=== PATIENT | male | born 1950 | race Caucasian/White ===

== ENCOUNTER 2019-07-31 14:04 | Inpatient (IN) ==
--- NOTE | 2019-07-31 14:24 | Emergency Department Note ---
Disposition Clinical Impression: Acute respiratory failure with hypoxia Congestive heart failure Qualifiers: Heart failure type: unspecified Heart failure chronicity: acute on chronic Qualified Code(s): I50.9 - Heart failure, unspecified Disposition: Admitted As Inpatient Condition: Fair Referrals: NONE,PCP [Primary Care Provider] - Forms: ED Satisfaction Letter Time of Disposition: 16:46 General Adult HPI - General Stated complaint: YAZ Time Seen by Provider: 07/31/19 14:14 Source: patient, family Mode of arrival: EMS Limitations: no limitations Nursing Notes Reviewed: Yes Vital Signs Reviewed: Yes - History of Present Illness HPI Narrative: Patient's 69-year-old male history of CHF, diabetes, currently on Eliquis with reports of prior DVT presenting emergency department from the [place] for difficulty in breathing. Report from EMS that the patient was seen at the [place] today for a suspected acute CHF exacerbation. He was given a total of 40 mg of IV Lasix as well as started on BiPAP. Patient uses oxygen at home he does not use CPAP. Patient was recently discharged for an admission elsewhere for the same complaint. Patient recently started on new medications including flecainide, carvedilol, spironolactone, isosorbide. Here in the emergency department he is complaining of shortness of breath he was switched to our BiPAP. Patient denies chest pain, abdominal pain, nausea, vomiting. - Related Data Home Medications Medication Instructions Recorded Confirmed Amlodipine Besylate 10 mg PO DAILY 07/31/19 07/31/19 Apixaban [Eliquis] 5 mg PO BID 07/31/19 07/31/19 Aspirin [Lo-Dose Aspirin EC] 81 mg PO DAILY 07/31/19 07/31/19 Atorvastatin Calcium [Lipitor] 80 mg PO DAILY 07/31/19 07/31/19 Carvedilol [Coreg] 25 mg PO BID 07/31/19 07/31/19 Cholecalciferol (D-3) [Vitamin D] 2,000 unit PO DAILY 07/31/19 07/31/19 Flecainide 100 mg PO Q12HR 07/31/19 07/31/19 Furosemide [Lasix] 20 mg PO BID 07/31/19 07/31/19 Gabapentin [Neurontin] 300 mg PO TID 07/31/19 07/31/19 Hydralazine HCl 100 mg PO TID 07/31/19 07/31/19 Insulin ASPART [Novolog Flexpen] 10 unit SQ 0700,1200 07/31/19 07/31/19 Insulin ASPART [Novolog Flexpen] 18 unit SQ 1700 07/31/19 07/31/19 Insulin Glargine,Hum.rec.anlog 47 unit SQ HS 07/31/19 07/31/19 [Lantus Solostar] Isosorbide MONOnitrate (24 HR) 60 mg PO DAILY 07/31/19 07/31/19 [Imdur] Loratadine [Claritin] 10 mg PO DAILY 07/31/19 07/31/19 Losartan Potassium [Cozaar] 100 mg PO DAILY 07/31/19 07/31/19 Pantoprazole Sodium [Protonix] 40 mg PO DAILY 07/31/19 07/31/19 Ranitidine HCl [Heartburn Relief] 150 mg PO DAILY 07/31/19 07/31/19 Sertraline [Zoloft] 25 mg PO DAILY 07/31/19 07/31/19 Spironolactone 25 mg PO DAILY 07/31/19 07/31/19 Tamsulosin HCl [Flomax] 0.4 mg PO DAILY 07/31/19 07/31/19 Allergies Allergy/AdvReac Type Severity Reaction Status Date / Time No Known Allergies Allergy Verified 07/31/19 14:20 All systems ED: reviewed and negative except as stated. Review of Systems: As Per HPI Constitutional: Denies: fever, chills Eyes: Denies: eye pain, eye discharge ENT ED: Denies: ear pain, throat pain Cardiovascular: Reports: dyspnea on exertion. Denies: chest pain, palpitations Respiratory: Reports: cough, dyspnea Gastrointestinal: Denies: abdominal pain, nausea Genitourinary: Denies: urgency, dysuria Musculoskeletal: Denies: back pain, neck pain Integumentary: Denies: rash, abrasion Neurological: Denies: headache, weakness Psychiatric: Denies: anxiety, depression Endocrine: Denies: fatigue, heat or cold intolerance Hematological/Lymphatic: Denies: easy bleeding, easy bruising Allergic/Immunologic: Denies: facial swelling, urticaria Past Medical History - Past Medical History Attestation: Yes The following information was validated with the patient. Source: patient Physical Exam - General Limitations: no limitations, language barrier General appearance: alert, in no apparent distress - Head Head exam: atraumatic, normocephalic - Eye Eye exam: Present: normal appearance, PERRL, EOMI. Absent: scleral icterus, co njunctival injection - ENT ENT exam: normal exam, normal oropharynx, mucous membranes moist - Neck Neck exam: Present: normal inspection, full ROM - Chest Chest inspection: Present: normal inspection, symmetric chest wall rise. Absent: tenderness - Respiratory Respiratory exam: Present: respiratory distress, other (Bilateral crackles released in the lower lung ferrara) - Cardiovascular Cardiovascular exam: Present: normal rhythm, bradycardia, normal heart sounds - Abdominal Exam Abdominal exam: Present: soft, Non-Tender. Absent: tenderness - Extremities Exam Extremities exam: Present: other (4+ pitting edema of the lower extremities right leg appears more swollen than left.) - Neurological Exam Neurological exam: Present: alert, oriented X3 - Psychiatric Psychiatric exam: Present: normal affect, normal mood - Skin Skin exam: Present: warm, dry Course Vital Signs Temperature 97.5 F L 07/31/19 14:06 Pulse Rate 53 07/31/19 14:06 Respiratory Rate 26 07/31/19 14:06 Blood Pressure 130/60 07/31/19 14:06 O2 Sat by Pulse Oximetry 93 07/31/19 14:06 Temperature 97.5 F L 07/31/19 14:06 Pulse Rate 51 07/31/19 15:20 Respiratory Rate 16 07/31/19 15:20 Blood Pressure 154/75 07/31/19 15:20 O2 Sat by Pulse Oximetry 94 07/31/19 15:20 Oxygen Delivery Oxygen Delivery Bipap Medical Decision Making - [facility] Narrative Medical decision making narrative: Patient is a 9-year-old male history of CHF, diabetes, Eliquis for history of DVT. Presenting the emergency department from the [place] for acute hypoxic respiratory failure. Patient was brought in on BiPAP. We continued BiPAP here in the emergency department we have drawn basic labs as well as perform a chest x-ray. Chest x-ray shows pulmonary edema. Patient's vital signs in the emergency department he had a normotensive blood pressure and was slightly bradycardic at a rate in the 50s. So nitrates were not given. 40 mg of IV Lasix was given prior to arrival at the [place]. Patient improved on BiPAP and is satting 96%. We will perform basic laboratory evaluation as well as an ultrasound of the right lower extremity due to the asymmetry. Repeat chest x-ray demonstrates pulmonary edema. Lower extremity ultrasound was negative for DVT. I spoke with the hospitalist Dr. Rush who is agreed to admit the patient. - Medical Records Medical records reviewed: Yes I reviewed the patient's medical records. - Lab Data Lab results reviewed: Yes I reviewed the patient's lab results. Result diagrams: 07/31/19 14:13 07/31/19 14:13 Lab Results 07/31/19 07/31/19 07/31/19 Range/Units 14:13 14:13 14:13 WBC 10.1 (4.3-11.1) K/mcL RBC 4.06 L (4.19-5.50) M/mcL Hgb 10.0 L (12.9-16.9) g/dL Hct 33.7 L (37.5-50.1) % MCV 83.0 (83.0-100.0) fL MCH 24.6 L (28.0-33.3) pg MCHC 29.7 L (31.6-35.5) g/dL RDW 15.6 H (11.5-14.5) % Plt Count 348 (140-400) K/mcL MPV 9.8 (9.4-12.4) fL Immature Gran % 0.6 (0-4) % Seg Neutrophils % 62.7 % Lymphocytes % 18.5 % Monocytes % 9.8 % Eosinophils % 7.8 % Basophils % 0.6 % Neutrophils # 6.3 (1.6-8.9) K/mcL Lymphocytes # 1.9 (0.6-4.6) K/mcL Monocytes # 1.0 (0.0-1.3) K/mcL Eosinophils # 0.8 H (0.0-0.6) K/mcL Basophils # 0.1 (0.0-0.2) K/mcL VBG pH (7.32-7.42) pH Units VBG pCO2 (41-51) mmHg VBG pO2 (25-50) mmHg VBG HCO3 (21-27) mEq/L Sodium 143 (136-145) mEq/L Potassium 4.3 (3.5-5.1) mEq/L Chloride 104 (98-107) mEq/L Carbon Dioxide 32 H (23-29) mEq/L BUN 38 H (8-23) mg/dL Creatinine 1.32 H (0.70-1.30) mg/dL Est GFR ( Amer) > 60 (> 60) Est GFR (Non-Af Amer) 54 L (> 60) BUN/Creatinine Ratio 29 H (6-26) Glucose 84 (70-105) mg/dL Calculated Osmolality 304 H (280-300) Calcium 9.4 (8.6-10.3) mg/dL Total Bilirubin 0.4 (0.3-1.0) mg/dL AST 14 (13-39) Units/L ALT 12 (7-52) Units/L Alkaline Phosphatase 91 (34-104) Units/L Troponin I < 0.03 (< 0.04) ng/mL B-Natriuretic Peptide 213 H (Less than 100) pg/mL Serum Total Protein 6.4 (6.4-8.9) g/dL Albumin 3.3 L (3.5-5.7) g/dL Globulin 3.1 (2.4-3.5) g/dL Albumin/Globulin Ratio 1.1 (1.1-2.2) 07/31/19 Range/Units 14:28 WBC (4.3-11.1) K/mcL RBC (4.19-5.50) M/mcL Hgb (12.9-16.9) g/dL Hct (37.5-50.1) % MCV (83.0-100.0) fL MCH (28.0-33.3) pg MCHC (31.6-35.5) g/dL RDW (11.5-14.5) % Plt Count (140-400) K/mcL MPV (9.4-12.4) fL Immature Gran % (0-4) % Seg Neutrophils % % Lymphocytes % % Monocytes % % Eosinophils % % Basophils % % Neutrophils # (1.6-8.9) K/mcL Lymphocytes # (0.6-4.6) K/mcL Monocytes # (0.0-1.3) K/mcL Eosinophils # (0.0-0.6) K/mcL Basophils # (0.0-0.2) K/mcL VBG pH 7.41 (7.32-7.42) pH Units VBG pCO2 53 H (41-51) mmHg VBG pO2 66 H (25-50) mmHg VBG HCO3 34 H (21-27) mEq/L Sodium (136-145) mEq/L Potassium (3.5-5.1) mEq/L Chloride (98-107) mEq/L Carbon Dioxide (23-29) mEq/L BUN (8-23) mg/dL Creatinine (0.70-1.30) mg/dL Est GFR ( Amer) (> 60) Est GFR (Non-Af Amer) (> 60) BUN/Creatinine Ratio (6-26) Glucose (70-105) mg/dL Calculated Osmolality (280-300) Calcium (8.6-10.3) mg/dL Total Bilirubin (0.3-1.0) mg/dL AST (13-39) Units/L ALT (7-52) Units/L Alkaline Phosphatase (34-104) Units/L Troponin I (< 0.04) ng/mL B-Natriuretic Peptide (Less than 100) pg/mL Serum Total Protein (6.4-8.9) g/dL Albumin (3.5-5.7) g/dL Globulin (2.4-3.5) g/dL Albumin/Globulin Ratio (1.1-2.2) - Radiology Data Radiology results reviewed: Yes I reviewed the patient's radiology results. Chest X-Ray 07/31/19 14:24 IMPRESSION: Findings suggest congestive heart failure D/ / Selvin Lopez MD / Selvin Lopez MD Interpreting Provider: Selvin Lopez MD - EKG Data EKG #1 EKG attestation: Yes I reviewed and interpreted this EKG. EKG results narrative: EKG performed at 1417 reviewed by myself and attending shows a sinus bradycardia rhythm a rate of 54, VA 236, QRS 106, QTC 462. There are no acute ST changes no acute T-wave changes no other signs of ischemia. There is low voltage. VA interval is prolonged. Previous EKG performed 01/16/2013 there was multiple PVCs. Attestation Statement - Attestation Attestation: Mandi Elias D.O., examined this patient and my medical decision-making was reviewed with the Resident Physician. I agree with the documented findings, disposition and treatment plan as described except to the extent set forth below.
[2019-07-31 14:31] LABS: VBG HCO3 34 mEq/L (21-27); VBG PCO2 53 mmHg (41-51); VBG PH 7.41 pH Units (7.32-7.42); VBG PO2 66 mmHg (25-50)
[2019-07-31 14:36] LABS: Basophils # 0.1 K/mcL (0.0-0.2); Basophils % 0.6 %; Eosinophils # 0.8 K/mcL (0.0-0.6); Eosinophils % 7.8 %; Hematocrit 33.7 % (37.5-50.1); Immature Granulocytes % 0.6 % (0-4); Lymphocytes # 1.9 K/mcL (0.6-4.6); Lymphocytes % 18.5 %; Mean Corpuscular HGB Conc 29.7 g/dL (31.6-35.5); Mean Corpuscular Hemoglobin 24.6 pg (28.0-33.3); Mean Platelet Volume 9.8 fL (9.4-12.4); Monocytes % 9.8 %; Neutrophils # 6.3 K/mcL (1.6-8.9); Platelet Count 348 K/mcL (140-400); Red Blood Count 4.06 M/mcL (4.19-5.50); Red Cell Distribution Width 15.6 % (11.5-14.5); Segmented Neutrophils % 62.7 %; White Blood Count 10.1 K/mcL (4.3-11.1)
[2019-07-31 14:54] LABS: Alanine Aminotransferase 12 Units/L (7-52); Albumin 3.3 g/dL (3.5-5.7); Albumin/Globulin Ratio 1.1 (1.1-2.2); Alkaline Phosphatase 91 Units/L (34-104); Aspartate Amino Transferase 14 Units/L (13-39); BUN/Creatinine Ratio 29 (6-26); Bilirubin,Total 0.4 mg/dL (0.3-1.0); Blood Urea Nitrogen 38 mg/dL (8-23); Calcium 9.4 mg/dL (8.6-10.3); Carbon Dioxide 32 mEq/L (23-29); Chloride 104 mEq/L (98-107); Globulin 3.1 g/dL (2.4-3.5); Glucose 84 mg/dL (70-105); Osmolality,Calculated 304 (280-300); Potassium 4.3 mEq/L (3.5-5.1); Sodium 143 mEq/L (136-145); Total Protein 6.4 g/dL (6.4-8.9); Troponin I < 0.03 ng/mL (< 0.04); eGFR For African Americans > 60 (> 60); eGFR For Non-African Americans 54 (> 60)
--- NOTE | 2019-07-31 15:05 | Emergency Department Note ---
Disposition Clinical Impression: Acute respiratory failure with hypoxia Congestive heart failure Qualifiers: Heart failure type: unspecified Heart failure chronicity: acute on chronic Qualified Code(s): I50.9 - Heart failure, unspecified Disposition: Admitted As Inpatient Condition: Fair Forms: ED Satisfaction Letter Time of Disposition: 16:51 General Adult HPI - General Chief complaint: ED Shortness of Breath/Dyspnea Stated complaint: YAZ Time Seen by Provider: 07/31/19 14:14 Source: EMS Limitations: no limitations, language barrier - History of Present Illness Pain Scale: 0 - Related Data Home Medications Medication Instructions Recorded Confirmed Amlodipine Besylate 10 mg PO DAILY 07/31/19 07/31/19 Apixaban [Eliquis] 5 mg PO BID 07/31/19 07/31/19 Aspirin [Lo-Dose Aspirin EC] 81 mg PO DAILY 07/31/19 07/31/19 Atorvastatin Calcium [Lipitor] 80 mg PO DAILY 07/31/19 07/31/19 Carvedilol [Coreg] 25 mg PO BID 07/31/19 07/31/19 Cholecalciferol (D-3) [Vitamin D] 2,000 unit PO DAILY 07/31/19 07/31/19 Flecainide 100 mg PO Q12HR 07/31/19 07/31/19 Furosemide [Lasix] 20 mg PO BID 07/31/19 07/31/19 Gabapentin [Neurontin] 300 mg PO TID 07/31/19 07/31/19 Hydralazine HCl 100 mg PO TID 07/31/19 07/31/19 Insulin ASPART [Novolog Flexpen] 10 unit SQ 0700,1200 07/31/19 07/31/19 Insulin ASPART [Novolog Flexpen] 18 unit SQ 1700 07/31/19 07/31/19 Insulin Glargine,Hum.rec.anlog 47 unit SQ HS 07/31/19 07/31/19 [Lantus Solostar] Isosorbide MONOnitrate (24 HR) 60 mg PO DAILY 07/31/19 07/31/19 [Imdur] Loratadine [Claritin] 10 mg PO DAILY 07/31/19 07/31/19 Losartan Potassium [Cozaar] 100 mg PO DAILY 07/31/19 07/31/19 Pantoprazole Sodium [Protonix] 40 mg PO DAILY 07/31/19 07/31/19 Ranitidine HCl [Heartburn Relief] 150 mg PO DAILY 07/31/19 07/31/19 Sertraline [Zoloft] 25 mg PO DAILY 07/31/19 07/31/19 Spironolactone 25 mg PO DAILY 07/31/19 07/31/19 Tamsulosin HCl [Flomax] 0.4 mg PO DAILY 07/31/19 07/31/19 Allergies Allergy/AdvReac Type Severity Reaction Status Date / Time No Known Allergies Allergy Verified 07/31/19 14:20 Constitutional: Denies: fever, chills Eyes: Denies: eye pain, eye discharge ENT ED: Denies: ear pain, throat pain Cardiovascular: Reports: dyspnea on exertion. Denies: chest pain, palpitations Respiratory: Reports: cough, dyspnea Gastrointestinal: Denies: abdominal pain, nausea Genitourinary: Denies: urgency, dysuria Musculoskeletal: Denies: back pain, neck pain Integumentary: Denies: rash, abrasion Neurological: Denies: headache, weakness Psychiatric: Denies: anxiety, depression Endocrine: Denies: fatigue, heat or cold intolerance Hematological/Lymphatic: Denies: easy bleeding, easy bruising Allergic/Immunologic: Denies: facial swelling, urticaria Past Medical History - Past Medical History Medical history: Reports: CHF, coronary artery disease, diabetes, GERD, hyperlipidemia, hypertension Psychiatric history: Reports: no psych history - Social History Smoking Status: Never smoker Alcohol use: Reports: none Drug use: Reports: none Physical Exam - General Limitations: no limitations, language barrier General appearance: alert, in no apparent distress Course Vital Signs Temperature 97.5 F L 07/31/19 14:06 Pulse Rate 53 07/31/19 14:06 Respiratory Rate 26 07/31/19 14:06 Blood Pressure 130/60 07/31/19 14:06 O2 Sat by Pulse Oximetry 93 07/31/19 14:06 Temperature 97.5 F L 07/31/19 14:06 Pulse Rate 51 07/31/19 15:20 Respiratory Rate 16 07/31/19 15:20 Blood Pressure 154/75 07/31/19 15:20 O2 Sat by Pulse Oximetry 94 07/31/19 15:20 Oxygen Delivery Oxygen Delivery Bipap Medical Decision Making - Lab Data Result diagrams: 07/31/19 14:13 07/31/19 14:13 Lab Results 07/31/19 07/31/19 07/31/19 Range/Units 14:13 14:13 14:13 WBC 10.1 (4.3-11.1) K/mcL RBC 4.06 L (4.19-5.50) M/mcL Hgb 10.0 L (12.9-16.9) g/dL Hct 33.7 L (37.5-50.1) % MCV 83.0 (83.0-100.0) fL MCH 24.6 L (28.0-33.3) pg MCHC 29.7 L (31.6-35.5) g/dL RDW 15.6 H (11.5-14.5) % Plt Count 348 (140-400) K/mcL MPV 9.8 (9.4-12.4) fL Immature Gran % 0.6 (0-4) % Seg Neutrophils % 62.7 % Lymphocytes % 18.5 % Monocytes % 9.8 % Eosinophils % 7.8 % Basophils % 0.6 % Neutrophils # 6.3 (1.6-8.9) K/mcL Lymphocytes # 1.9 (0.6-4.6) K/mcL Monocytes # 1.0 (0.0-1.3) K/mcL Eosinophils # 0.8 H (0.0-0.6) K/mcL Basophils # 0.1 (0.0-0.2) K/mcL VBG pH (7.32-7.42) pH Units VBG pCO2 (41-51) mmHg VBG pO2 (25-50) mmHg VBG HCO3 (21-27) mEq/L Sodium 143 (136-145) mEq/L Potassium 4.3 (3.5-5.1) mEq/L Chloride 104 (98-107) mEq/L Carbon Dioxide 32 H (23-29) mEq/L BUN 38 H (8-23) mg/dL Creatinine 1.32 H (0.70-1.30) mg/dL Est GFR ( Amer) > 60 (> 60) Est GFR (Non-Af Amer) 54 L (> 60) BUN/Creatinine Ratio 29 H (6-26) Glucose 84 (70-105) mg/dL Calculated Osmolality 304 H (280-300) Calcium 9.4 (8.6-10.3) mg/dL Total Bilirubin 0.4 (0.3-1.0) mg/dL AST 14 (13-39) Units/L ALT 12 (7-52) Units/L Alkaline Phosphatase 91 (34-104) Units/L Troponin I < 0.03 (< 0.04) ng/mL B-Natriuretic Peptide 213 H (Less than 100) pg/mL Serum Total Protein 6.4 (6.4-8.9) g/dL Albumin 3.3 L (3.5-5.7) g/dL Globulin 3.1 (2.4-3.5) g/dL Albumin/Globulin Ratio 1.1 (1.1-2.2) 07/31/19 Range/Units 14:28 WBC (4.3-11.1) K/mcL RBC (4.19-5.50) M/mcL Hgb (12.9-16.9) g/dL Hct (37.5-50.1) % MCV (83.0-100.0) fL MCH (28.0-33.3) pg MCHC (31.6-35.5) g/dL RDW (11.5-14.5) % Plt Count (140-400) K/mcL MPV (9.4-12.4) fL Immature Gran % (0-4) % Seg Neutrophils % % Lymphocytes % % Monocytes % % Eosinophils % % Basophils % % Neutrophils # (1.6-8.9) K/mcL Lymphocytes # (0.6-4.6) K/mcL Monocytes # (0.0-1.3) K/mcL Eosinophils # (0.0-0.6) K/mcL Basophils # (0.0-0.2) K/mcL VBG pH 7.41 (7.32-7.42) pH Units VBG pCO2 53 H (41-51) mmHg VBG pO2 66 H (25-50) mmHg VBG HCO3 34 H (21-27) mEq/L Sodium (136-145) mEq/L Potassium (3.5-5.1) mEq/L Chloride (98-107) mEq/L Carbon Dioxide (23-29) mEq/L BUN (8-23) mg/dL Creatinine (0.70-1.30) mg/dL Est GFR ( Amer) (> 60) Est GFR (Non-Af Amer) (> 60) BUN/Creatinine Ratio (6-26) Glucose (70-105) mg/dL Calculated Osmolality (280-300) Calcium (8.6-10.3) mg/dL Total Bilirubin (0.3-1.0) mg/dL AST (13-39) Units/L ALT (7-52) Units/L Alkaline Phosphatase (34-104) Units/L Troponin I (< 0.04) ng/mL B-Natriuretic Peptide (Less than 100) pg/mL Serum Total Protein (6.4-8.9) g/dL Albumin (3.5-5.7) g/dL Globulin (2.4-3.5) g/dL Albumin/Globulin Ratio (1.1-2.2) Attestation Statement - Attestation Attestation: Mandi Elias D.O., examined this patient and my medical decision-making was reviewed with the Resident Physician. I agree with the documented findings, disposition and treatment plan as described except to the extent set forth below. 69-year-old male history of congestive heart failure, diabetes, currently on Eliquis with reports of prior DVT who presents with a chief complaint of shortness of breath. The patient was seen at the [place] urgent care earlier. He was given 40 mg of Lasix and placed on CPAP. He states that he wears oxygen at home. He does not wear CPAP. His been short of breath for a few days. He has had lower extremity swelling. He reports a recent admission a week ago. Denies any chest pain. No other complaints. General: Alert, in moderate respiratory distress HENT: Normocephalic, Atraumatic Neck: No JVD Cardiovascular: Bradycardic, regular rhythm. No appreciable murmurs Respiratory: Moderate respiratory distress. Diminished breath sounds bilaterally. Abdominal: Soft, non tender. No peritoneal findings Extremities: Significant lower extremity pitting edema, right greater than left Neuro: Alert, Mentating appropriately, No focal deficits Skin: Warm, Dry Plan: Patient will remain on BiPAP. Chest x-ray reviewed at bedside showing pulmonary edema. He has already received Lasix. Plan to repeat labs, admission for congestive heart failure. ED Procedure Note: EKG interpretation - I agree with the resident physician's documentation and interpretation of the patient's EKG. Sinus bradycardia with rate of 54 bpm. Normal axis. First-degree AV block with a UT interval of 236. Other intervals normal.. Normal R-wave progression. No gross ST elevations or depressions. No acute ischemic findings. Imaging labs reviewed. Chest x-ray shows volume overload. He does have an elevated BNP. Patient received Lasix prior to arrival. Patient is admitted to the hospitalist service.
[2019-07-31] MEDS ORDERED: Mag Hydrox/Al Hydrox/Simeth 30 ML UDC PO PRN (17:14)
[2019-07-31] MEDS ORDERED: Ondansetron 4 MG/2 ML VIAL IVP PRN (17:14)
[2019-07-31] MEDS ORDERED: Dextrose Gel 15 GM/37.5 ML TUBE PO PRN ×2 (17:19)
[2019-07-31] MEDS ORDERED: *HR* Dextrose 50 % in Water (Syg) 50 ML SYRINGE IVP PRN (17:19)
[2019-07-31] MEDS ORDERED: D5% in Water 1,000 ML IVC PRN (17:19)
--- NOTE | 2019-07-31 17:25 | Internal Med History&Physical ---
Date of Encounter: 07/31/19 Time of Encounter: 17:25 Internal Medicine - H&P: HPI Chief complaint: Dyspnea Admitted From: Home Plans for Post Hospital Care: Home History of present illness: Mr. Aldana is a 69 year old male with history of CVA status post right-sided weakness, DVT, left carotid artery endarterectomy, recurrent heart failure, insulin-dependent diabetes mellitus, ??? A. dale (on flecainide) was sent from [place] emergency Department due to dyspnea and decompensated heart failure. Patient was sleepy on BiPAP during my encounter and most of the history was taken from his brother. Patient had 3 hospitalization in the last month for acute decompensated heart failure and he also follows with outpatient dynamicist. As per the brother, patient is on Lasix 20 mg twice a day and he does not skip any doses. He follows 1500 mL fluid restriction and low sodium diet faithfully at home. Patient was able to answer simple questions and he denied chest pain, palpitation, fever, chills, night sweats, excessive cough or sputum production, tobacco abuse. In the ER, patient was afebrile, hemodynamically stable. He was on BiPAP in mild distress. Chest x-ray with finding of congestive heart failure and bibasilar atelectasis. Blood work was significant for elevated BNP , troponin was negative 1. EKG sinus bradycardia with first-degree heart block. Past Med Surg Social Fam HX - Past Medical History Medical history: CHF, coronary artery disease, diabetes, GERD, hyperlipidemia, hypertension Psychiatric history: no psych history - Past Surgical History Additional surgical history: Left carotid endarterectomy - Social History Smoking Status: Never smoker Alcohol use: none Drug use: none Activity Level: Independent ambulation Recent Out of Country Travel Within the Last 8 Weeks: No Exposure or Possible Exposure to Illness During Travel: No - Additional Family History Additional family history: Reviewed and noncontributory Internal Medicine - H&P: Meds Amlodipine Besylate 10 mg PO DAILY 07/31/19 [History] Apixaban [Eliquis] 5 mg PO BID 07/31/19 [History] Aspirin [Lo-Dose Aspirin EC] 81 mg PO DAILY 07/31/19 [History] Atorvastatin Calcium [Lipitor] 80 mg PO DAILY 07/31/19 [History] Carvedilol [Coreg] 25 mg PO BID 07/31/19 [History] Cholecalciferol (D-3) [Vitamin D] 2,000 unit PO DAILY 07/31/19 [History] Flecainide 100 mg PO Q12HR 07/31/19 [History] Furosemide [Lasix] 20 mg PO BID 07/31/19 [History] Gabapentin [Neurontin] 300 mg PO TID 07/31/19 [History] Hydralazine HCl 100 mg PO TID 07/31/19 [History] Insulin ASPART [Novolog Flexpen] 10 unit SQ 0700,1200 07/31/19 [History] Insulin ASPART [Novolog Flexpen] 18 unit SQ 1700 07/31/19 [History] Insulin Glargine,Hum.rec.anlog [Lantus Solostar] 47 unit SQ HS 07/31/19 [History] Isosorbide MONOnitrate (24 HR) [Imdur] 60 mg PO DAILY 07/31/19 [History] Loratadine [Claritin] 10 mg PO DAILY 07/31/19 [History] Losartan Potassium [Cozaar] 100 mg PO DAILY 07/31/19 [History] Pantoprazole Sodium [Protonix] 40 mg PO DAILY 07/31/19 [History] Ranitidine HCl [Heartburn Relief] 150 mg PO DAILY 07/31/19 [History] Sertraline [Zoloft] 25 mg PO DAILY 07/31/19 [History] Spironolactone 25 mg PO DAILY 07/31/19 [History] Tamsulosin HCl [Flomax] 0.4 mg PO DAILY 07/31/19 [History] Allergy/AdvReac Type Severity Reaction Status Date / Time No Known Allergies Allergy Verified 07/31/19 14:20 All Systems PM: A 10-system review of systems was performed and is negative for pertinent findings except as documented above in the HPI. - Constitutional Vitals: Temp Pulse Resp BP Pulse Ox 97.5 F L 55 16 151/72 97 07/31/19 14:06 07/31/19 17:18 07/31/19 17:18 07/31/19 17:18 07/31/19 17:18 Exam: General: Patient is somnolent, arousable, mild distress, on BiPAP Head: Atraumatic, normal inspection, normocephalic. Eye: EOMI, PERRLA, no scleral icterus noted. ENT: Mucous membranes moist. Neck: Normal inspection, Respiratory: Bilateral bibasilar crackles Cardiovascular: Regular rate and regular rhythm, distant heart sounds. GI: Soft, nondistended, normal bowel sounds. Extremities: +3 lateral lower extremity edema up to the knee, right lower extremity larger than the left. Neurological: Alert, oriented 3, no focal deficits. Psychiatric: normal affect, normal mood. Skin: Dry, intact, warm. Normal color. No rashes. Internal Med - H&P Results - Labs CBC & Chem 7: 07/31/19 14:13 07/31/19 14:13 Labs: Short CBC 07/31/19 Range/Units 14:13 WBC 10.1 (4.3-11.1) K/mcL Hgb 10.0 L (12.9-16.9) g/dL Hct 33.7 L (37.5-50.1) % Plt Count 348 (140-400) K/mcL Neutrophils # 6.3 (1.6-8.9) K/mcL BMP 07/31/19 14:13 Sodium 143 Potassium 4.3 Chloride 104 Carbon Dioxide 32 H BUN 38 H Creatinine 1.32 H Glucose 84 Calcium 9.4 Cardiac Enzymes 07/31/19 Range/Units 14:13 Troponin I < 0.03 (< 0.04) ng/mL Liver Function 07/31/19 Range/Units 14:13 Total Bilirubin 0.4 (0.3-1.0) mg/dL AST 14 (13-39) Units/L ALT 12 (7-52) Units/L Alkaline Phosphatase 91 (34-104) Units/L Albumin 3.3 L (3.5-5.7) g/dL - ABG Interpretation ABG results: 07/31/19 14:28 VBG pH 7.41 VBG pCO2 53 H VBG pO2 66 H VBG HCO3 34 H - EKG Data -: EKG Interpreted by Myself EKG shows normal: sinus rhythm Rate: bradycardia - EKG Data Prior EKG available for review: no - Impressions ITS Impressions Chest X-Ray 07/31/19 14:24 IMPRESSION: Findings suggest congestive heart failure D/ / Selvin Lopez MD / Selvin Lopez MD Interpreting Provider: Selvin Lopez MD - Diagnostic Studies Chest x-ray Status: image reviewed by me (Congestive heart failure) - Assessment and Plan (1) Congestive heart failure Current Visit: Yes Status: Acute Assessment and plan: - She had 3 admissions in the past month for heart failure. BNP is elevated for his weight. Chest x-ray with findings of congestive heart. - On Lasix 20 mg twice a day at home, patient is compliant with his medication, diet and fluid restriction. - We will get CT scan of the chest to rule out pneumonia as a reason of his recurrent heart failure, likely he needs higher doses than 20 mg twice daily of Lasix. - We will continue with Lasix 40 mg IV twice a day. Monitor input and output, daily weight. Echo tomorrow. - Troponin 1 is negative, we will check another troponin. cardiology consult for recurrent heart failure, He would be a candidate for ENTERESTO to decrease the risk of readmission. Qualifiers: Heart failure type: unspecified Heart failure chronicity: unspecified Qualified Code(s): I50.9 - Heart failure, unspecified (2) Acute respiratory failure with hypoxia Current Visit: Yes Status: Acute Assessment and plan: 2/2 above. Now on Bipap. (3) DVT (deep venous thrombosis) Current Visit: Yes Status: Acute Assessment and plan: Continue with ELiquis Qualifiers: DVT location: lower extremity Affected thrombotic vein of extremity: unspecified vein of extremity Chronicity: unspecified Laterality: unspecified laterality Qualified Code(s): I82.409 - Acute embolism and thrombosis of unspecified deep veins of unspecified lower extremity (4) IDDM (insulin dependent diabetes mellitus) Current Visit: Yes Status: Chronic Assessment and plan: - On lantus 47 units qhs and lispro 08/16/18. Will start with levemir 30u and MSSI. Accu checks ACHS and ADA diet. (5) A-fib Current Visit: Yes Status: Suspected Assessment and plan: -Suspected, patient's medications list include Flecainide. Will confirm once he is more awake. Qualifiers: Atrial fibrillation type: unspecified Qualified Code(s): I48.91 - Unspecified atrial fibrillation (6) CVA (cerebral vascular accident) Current Visit: Yes Status: Chronic Assessment and plan: - Continue Aspirin and lipitor. Qualifiers: CVA mechanism: unspecified Qualified Code(s): I63.9 - Cerebral infarction, unspecified (7) HTN (hypertension) Current Visit: Yes Status: Acute Assessment and plan: -Continue home medications Qualifiers: Hypertension type: essential hypertension Qualified Code(s): I10 - Essential (primary) hypertension - Summary of Assessment and Plan Summary of Assessment and Plan: DVT ppx: continue Eliquis - Time Spent With Patient Total time spent is greater than 50% in coordination of care (as documented) at patient's floor/unit and/or counseling patient:
[2019-07-31] MEDS: hydrALAZINE 25 MG TABLET PO SCH (20:34)
[2019-07-31] MEDS: Gabapentin 300 MG CAPSULE PO SCH (20:34)
[2019-07-31] MEDS ORDERED: Apixaban 5 MG TABLET PO SCH (21:00)
[2019-07-31] MEDS ORDERED: Furosemide 40 MG/4 ML VIAL IVP ONE (21:00)
[2019-07-31] MEDS: Insulin DETEMIR 100 UNIT/ML X5UNITS SQ SCH (21:40)
[2019-08-01 04:24] LABS: Basophils # 0.1 K/mcL (0.0-0.2); Basophils % 0.9 %; Eosinophils # 0.6 K/mcL (0.0-0.6); Eosinophils % 7.8 %; Hematocrit 32.8 % (37.5-50.1); Hemoglobin 9.9 g/dL (12.9-16.9); Immature Granulocytes % 0.5 % (0-4); Lymphocytes # 1.3 K/mcL (0.6-4.6); Lymphocytes % 17.1 %; Mean Corpuscular HGB Conc 30.2 g/dL (31.6-35.5); Mean Corpuscular Hemoglobin 24.1 pg (28.0-33.3); Mean Platelet Volume 9.6 fL (9.4-12.4); Monocytes # 0.8 K/mcL (0.0-1.3); Neutrophils # 4.9 K/mcL (1.6-8.9); Platelet Count 331 K/mcL (140-400); Red Cell Distribution Width 15.6 % (11.5-14.5); Segmented Neutrophils % 63.7 %; White Blood Count 7.7 K/mcL (4.3-11.1)
[2019-08-01 04:45] LABS: BUN/Creatinine Ratio 29 (6-26); Blood Urea Nitrogen 35 mg/dL (8-23); Carbon Dioxide 35 mEq/L (23-29); Chloride 103 mEq/L (98-107); Glucose 70 mg/dL (70-105); Osmolality,Calculated 304 (280-300); Potassium 4.1 mEq/L (3.5-5.1); Sodium 144 mEq/L (136-145); Troponin I < 0.03 ng/mL (< 0.04); eGFR For African Americans > 60 (> 60); eGFR For Non-African Americans 60 (> 60)
--- NOTE | 2019-08-01 07:48 | Internal Med Progress Note ---
Hospitalist Progress Note - Encounter Date of Encounter: 08/01/19 Time of Encounter: 09:00 - Subjective Interval History: No acute events overnight - Exam Vitals: Temp Pulse Resp BP Pulse Ox 98.5 F 65 20 164/67 94 08/01/19 07:36 08/01/19 07:36 08/01/19 07:36 08/01/19 07:36 08/01/19 07:36 Exam: General: Patient is somnolent, arousable, mild distress, on BiPAP Head: Atraumatic, normal inspection, normocephalic. Eye: EOMI, PERRLA, no scleral icterus noted. ENT: Mucous membranes moist. Neck: Normal inspection, Respiratory: Bilateral bibasilar crackles Cardiovascular: Regular rate and regular rhythm, distant heart sounds. GI: Soft, nondistended, normal bowel sounds. Extremities: +3 lateral lower extremity edema up to the knee, right lower extremity larger than the left. Neurological: Alert, oriented 3, no focal deficits. Psychiatric: normal affect, normal mood. Skin: Dry, intact, warm. Normal color. No rashes. - Assessment and Plan (1) Acute respiratory failure with hypoxia Current Visit: Yes Status: Acute Assessment and Plan: ACute hypoxic respiratory failure 2/2 to acute CHF and pneumonia. Echo pending to deteermine EF Continue on Bipap, lasix and antibiotics. (2) Congestive heart failure Current Visit: Yes Status: Acute Assessment and Plan: He has had 3 admissions in the past month for heart failure. BNP is elevated for his weight. Chest x-ray with findings of congestive heart failure. Continue BID lasix. Strict ins and outs. Obtain 2D echo, thoracentesis for bilateral pleural effusions (3) DVT (deep venous thrombosis) Current Visit: Yes Status: Acute Assessment and Plan: Continue with ELiquis (4) IDDM (insulin dependent diabetes mellitus) Current Visit: Yes Status: Chronic Assessment and Plan: - On lantus 47 units qhs and lispro 08/16/18. Will start with levemir 30u and MSSI. Accu checks ACHS and ADA diet. (5) A-fib Current Visit: Yes Status: Suspected Assessment and Plan: Continue flecainide and eliquis (6) Pneumonia Current Visit: Yes Status: Acute Assessment and Plan: Continue antibiotics with ceftriaxone and doxycycline Obtain cultures (7) CVA (cerebral vascular accident) Current Visit: Yes Status: Chronic Assessment and Plan: - Continue Aspirin and lipitor. (8) HTN (hypertension) Current Visit: Yes Status: Acute Assessment and Plan: -Continue home medications - Time Spent with Patient Total time spent is greater than 50% in coordination of care (as documented) at patient's floor/unit and/or counseling patient: Internal Medicine: Result - Labs CBC & Chem 7: 08/01/19 04:04 08/01/19 04:04 Labs: Short CBC 07/31/19 08/01/19 Range/Units 14:13 04:04 WBC 10.1 7.7 (4.3-11.1) K/mcL Hgb 10.0 L 9.9 L (12.9-16.9) g/dL Hct 33.7 L 32.8 L (37.5-50.1) % Plt Count 348 331 (140-400) K/mcL Neutrophils # 6.3 4.9 (1.6-8.9) K/mcL BMP 07/31/19 08/01/19 14:13 04:04 Sodium 143 144 Potassium 4.3 4.1 Chloride 104 103 Carbon Dioxide 32 H 35 H BUN 38 H 35 H Creatinine 1.32 H 1.21 Glucose 84 70 Calcium 9.4 9.0 Cardiac Enzymes 07/31/19 08/01/19 Range/Units 14:13 04:04 Troponin I < 0.03 < 0.03 (< 0.04) ng/mL Liver Function 07/31/19 Range/Units 14:13 Total Bilirubin 0.4 (0.3-1.0) mg/dL AST 14 (13-39) Units/L ALT 12 (7-52) Units/L Alkaline Phosphatase 91 (34-104) Units/L Albumin 3.3 L (3.5-5.7) g/dL - Impressions Impressions Chest X-Ray 07/31/19 14:24 IMPRESSION: Findings suggest congestive heart failure D/ / Selvin Lopez MD / Selvin Lopez MD Interpreting Provider: Selvin Lopez MD Chest CT 07/31/19 18:06 IMPRESSION: [id number] bilateral pleural effusions with dependent consolidation involving the majority of the lower lobes, likely at least a large component of passive atelectasis. Pneumonia is not excluded. The aerated lungs show ground-glass opacity and interlobular septal thickening compatible with edema. There are few focal areas of bilateral nodular increased pulmonary opacity raising the possibility of superimposed pneumonia. D/ / Sonia Dash Cha, MD / Sonia Dash Cha, MD Interpreting Provider: Sonia Dash Cha, MD Consult Discharge Plan - Plan Referrals: NONE,PCP [Primary Care Provider] - (2) Congestive heart failure Qualifiers: Heart failure type: unspecified Heart failure chronicity: unspecified Qualified Code(s): I50.9 - Heart failure, unspecified (3) DVT (deep venous thrombosis) Qualifiers: DVT location: lower extremity Affected thrombotic vein of extremity: unspecified vein of extremity Chronicity: unspecified Laterality: unspecified laterality Qualified Code(s): I82.409 - Acute embolism and thrombosis of unspecified deep veins of unspecified lower extremity (5) A-fib Qualifiers: Atrial fibrillation type: unspecified Qualified Code(s): I48.91 - Unspecified atrial fibrillation (7) CVA (cerebral vascular accident) Qualifiers: CVA mechanism: unspecified Qualified Code(s): I63.9 - Cerebral infarction, unspecified (8) HTN (hypertension) Qualifiers: Hypertension type: essential hypertension Qualified Code(s): I10 - Essential (primary) hypertension
[2019-08-01 08:45] LABS: INR 1.6; Prothrombin Time 17.7 Seconds (9.4-12.1)
[2019-08-01] MEDS: Insulin LISPRO 300 UNITS/3 ML VIAL SQ SCH ×3 (08:48→16:28)
[2019-08-01] MEDS: Cholecalciferol (D-3) 1,000 UNIT (25MCG) TABLET PO SCH (08:49)
[2019-08-01] MEDS: Loratadine 10 MG TABLET PO SCH (08:49)
[2019-08-01] MEDS: Aspirin Enteric Coated 81 MG Tablet PO SCH (08:49)
[2019-08-01] MEDS: Isosorbide MONOnitrate (24 HR) 60 MG TAB.ER.24H PO SCH (08:49)
[2019-08-01] MEDS: hydrALAZINE 25 MG TABLET PO SCH ×3 (08:49→20:56)
[2019-08-01] MEDS: Gabapentin 300 MG CAPSULE PO SCH ×3 (08:49→20:56)
[2019-08-01] MEDS: Furosemide 40 MG/4 ML VIAL IVP SCH ×2 (08:50→16:22)
[2019-08-01] MEDS: cefTRIAXone 1,000 MG in Water for inj. (sterile) 10 ML IVP SCH (08:50)
--- NOTE | 2019-08-01 11:48 | Cardiology Consult Note ---
<Anthony Henning - Last Filed: 08/01/19 12:29> Date of Encounter: 08/01/19 Time of Encounter: 11:46 Assessment and Plan (1) Congestive heart failure Current Visit: Yes Status: Acute Acute on chronic CHF. Obtain records from OSH. No reports here. Obtain TTE. Agree with IV lasix and consideration of thoracentesis as you are doing. Strict I&O and daily weights. Net -3680ML. Will need higher dose lasix at discharge. CHF education reviewed. We will follow with you. Qualifiers: Heart failure type: unspecified Heart failure chronicity: unspecified Qualified Code(s): I50.9 - Heart failure, unspecified (2) A-fib Current Visit: Yes Status: Suspected Newly diagnosed afib. Currently NSR. On flecainide. Anticoagulated on eliquis. Check EKG. Qualifiers: Atrial fibrillation type: unspecified Qualified Code(s): I48.91 - Unspeci fied atrial fibrillation Discussion w patient/family: The assessment and plan as outlined above was discussed with the patient and/or family members who expressed understanding and agreement. All questions were answered. Thank you for involving us in the care of your patient. Please call with any questions. History of Present Illness Consult date: 08/01/19 Requesting physician: Jeremy Moon Consult reason: CHF Chief complaint: SOB, recurrent CHF History of present illness: Mr. Aldana is a 69 year old male with past medical history significant for newly diagnosed CHF and atrial fibrillation, prior CVA, HTN, HLD who presents from [place] with recurrent CHF exacerbation. This is his 4th hospital admission for CHF since June 12. He was initially seen at [facility] when he was diagnosed with atrial fibrillation and CHF. He was re-hospitalized at [facility] once for CHF and Once at the [facility] for CHF. After recent visit at [facility] he was still SOB and could not lay flat at night. He was sleeping in his recliner chair. C/o BLE edema and abdominal bloating. Reports compliance with medications and low sodium diet. Family and patient are poor historians. They cannot recall testing that was completed at OSH. We will order records. Past Med Surg Social Fam HX - Past Medical History Medical history: CHF, CVA, DVT, diabetes, GERD, hyperlipidemia, hypertension Psychiatric history: no psych history - Past Surgical History Additional surgical history: Left carotid endarterectomy - Social History Smoking Status: Never smoker Smokeless Tobacco Status: No Alcohol use: none Drug use: none Medications and Allergies Amlodipine Besylate 10 mg PO DAILY 07/31/19 [History] Apixaban [Eliquis] 5 mg PO BID 07/31/19 [History] Aspirin [Lo-Dose Aspirin EC] 81 mg PO DAILY 07/31/19 [History] Atorvastatin Calcium [Lipitor] 80 mg PO DAILY 07/31/19 [History] Carvedilol [Coreg] 25 mg PO BID 07/31/19 [History] Cholecalciferol (D-3) [Vitamin D] 2,000 unit PO DAILY 07/31/19 [History] Flecainide 100 mg PO Q12HR 07/31/19 [History] Furosemide [Lasix] 20 mg PO BID 07/31/19 [History] Gabapentin [Neurontin] 300 mg PO TID 07/31/19 [History] Hydralazine HCl 100 mg PO TID 07/31/19 [History] Insulin ASPART [Novolog Flexpen] 10 unit SQ 0700,1200 07/31/19 [History] Insulin ASPART [Novolog Flexpen] 18 unit SQ 1700 07/31/19 [History] Insulin Glargine,Hum.rec.anlog [Lantus Solostar] 47 unit SQ HS 07/31/19 [History] Isosorbide MONOnitrate (24 HR) [Imdur] 60 mg PO DAILY 07/31/19 [History] Loratadine [Claritin] 10 mg PO DAILY 07/31/19 [History] Losartan Potassium [Cozaar] 100 mg PO DAILY 07/31/19 [History] Pantoprazole Sodium [Protonix] 40 mg PO DAILY 07/31/19 [History] Ranitidine HCl [Heartburn Relief] 150 mg PO DAILY 07/31/19 [History] Sertraline [Zoloft] 25 mg PO DAILY 07/31/19 [History] Spironolactone 25 mg PO DAILY 07/31/19 [History] Tamsulosin HCl [Flomax] 0.4 mg PO DAILY 07/31/19 [History] Allergy/AdvReac Type Severity Reaction Status Date / Time No Known Allergies Allergy Verified 07/31/19 14:20 All Systems Review: The remainder of the systems were reviewed and are negative Physical Examination General: Conversant, No Apparent Distress HEENT: Atraumatic, Normocephaly, Mucus Membranes Moist Neck: No JVD, Normal carotid pulses Cardiac: Reg Rate and Rhythm, Normal S1 and S2, No Murmur Lungs: Other (on bipap, respirations diminished) Neuro: Alert and responsive, No focal deficits noted Abdomen: Soft, Non-Tender Skin: No rashes noted on visualized skin Musculoskeletal: No Chest Wall Tenderness Extremities: No Clubbing, No Cyanosis, Normal Pulses, Other (2+ BLE pitting edema.) Results 08/01/19 04:04 08/01/19 04:04 Lab Results 07/31/19 07/31/19 07/31/19 14:13 14:13 14:13 WBC 10.1 Hgb 10.0 L Hct 33.7 L Plt Count 348 INR Sodium 143 Potassium 4.3 Chloride 104 Carbon Dioxide 32 H BUN 38 H Creatinine 1.32 H Glucose 84 Calcium 9.4 Total Bilirubin 0.4 AST 14 ALT 12 Alkaline Phosphatase 91 Troponin I < 0.03 B-Natriuretic Peptide 213 H 08/01/19 08/01/19 08/01/19 04:04 04:04 04:04 WBC 7.7 Hgb 9.9 L Hct 32.8 L Plt Count 331 INR Sodium 144 Potassium 4.1 Chloride 103 Carbon Dioxide 35 H BUN 35 H Creatinine 1.21 Glucose 70 Calcium 9.0 Total Bilirubin AST ALT Alkaline Phosphatase Troponin I < 0.03 B-Natriuretic Peptide 218 H 08/01/19 08:17 WBC Hgb Hct Plt Count INR 1.6 Sodium Potassium Chloride Carbon Dioxide BUN Creatinine Glucose Calcium Total Bilirubin AST ALT Alkaline Phosphatase Troponin I B-Natriuretic Peptide - Imaging and Cardiology Echo: report reviewed - EKG Interpretation EKG results cardiology: personally reviewed Consult Discharge Plan - Plan Referrals: NONE,PCP [Primary Care Provider] - < A - Last Filed: 08/01/19 19:02> Date of Encounter: 08/01/19 - Attending Attestation I have personally performed a face to face evaluation on this patient. I have reviewed and agree with the documented findings and care plan as documented by the BANK OPERATIONS OFFICER. History and Exam by me shows: Patient with history of PAF, admitted for diastolic CHF exacerbation. Agree with diuresis. Obtain echo and continue Flecainide if no evidence of structural heart disease. Thanks for the consult, please call with questions. Jakub Gibson MD [facility] Assessment and Plan Discussion w patient/family: The assessment and plan as outlined above was discussed with the patient and/or family members who expressed understanding and agreement. All questions were answered. Thank you for involving us in the care of your patient. Please call with any questions. History of Present Illness History of present illness: Mr. Aldana is a 69 year old male All Systems Review: The remainder of the systems were reviewed and are negative Physical Examination Vital Signs, Last 4 Hours Temp Pulse Resp BP Pulse Ox 08/01/19 16:18 98.7 F 67 18 156/88 92 Results 08/01/19 04:04 08/01/19 04:04 Lab Results 08/01/19 08/01/19 08/01/19 04:04 04:04 04:04 WBC 7.7 Hgb 9.9 L Hct 32.8 L Plt Count 331 INR Sodium 144 Potassium 4.1 Chloride 103 Carbon Dioxide 35 H BUN 35 H Creatinine 1.21 Glucose 70 Calcium 9.0 Troponin I < 0.03 B-Natriuretic Peptide 218 H 08/01/19 08:17 WBC Hgb Hct Plt Count INR 1.6 Sodium Potassium Chloride Carbon Dioxide BUN Creatinine Glucose Calcium Troponin I B-Natriuretic Peptide
--- NOTE | 2019-08-01 13:31 | IR Procedure Note ---
Date of procedure: 08/01/19 Consent Obtained: Verbal consent Timeout: Correct patient and procedure verified, Correct site verified, Time out performed, Skin prep completed Local anesthetic: Lidocaine 1% Was there an registered nurse first assistant present: Yes Can Operator: Julio César Szymanski Estimated blood loss (cc): 0 Complications: None; Tolerated procedure well Indications: Bilateral pleureal effusions Procedure Performed: Bilateral thoracentesis Post Procedure Treatment Plan: monitor on floor Specimen: samples sent
[2019-08-01] MEDS ORDERED: Perflutren Lipid Microsphere 1.3 ML in 0.9 % Sodium Chloride 8.7 ML IVP ONE (15:29)
[2019-08-01] MEDS: Doxycycline 100 MG in 0.9 % Sodium Chloride Mini Bag 100 ML IVPB SCH ×2 (16:19→16:32)
[2019-08-01 16:43] LABS: Glucose,Pleural Fluid 66 mg/dL (No Ref Range); LDH,Pleural Fluid 82 Units/L (No Ref Range); RBC,Pleural Fluid 0.022 M/mcL; Total Protein,Pleural Fluid < 3.0 g/dL
[2019-08-01 17:50] LABS: Appearance of Pleural Fl Hazy (Clear)
[2019-08-01] MEDS ORDERED: Doxycycline 100 MG in 0.9 % Sodium Chloride Mini Bag 100 ML IVPB SCH (18:00)
[2019-08-01 18:05] LABS: Basophils,Pleural Fluid 0 %; Monocytes,Pleural Fluid 0 %
[2019-08-01] MEDS: Insulin DETEMIR 100 UNIT/ML X5UNITS SQ SCH (20:57)
[2019-08-01] MEDS: Apixaban 5 MG TABLET PO SCH (20:57)
--- NOTE | 2019-08-01 21:44 | Electrocardiograph Report ---
[address] [place], [place] [address] Test Date: 2019-07-31 Pat Name: Ky Aldana Department: [id number] Room: 2A23 Gender: M [employer] Supervisor: : [id number] Requested By: [id number] Order Number: [id number] Reading MD: Janene Hanna Measurements Intervals [place] Rate: 54 P: 29 MI: 236 QRS: 46 QRSD: 106 T: 8 QT: 487 QTc: 462 Interpretive Statements Sinus rhythm Prolonged MI interval Low voltage, extremity leads Probable anteroseptal infarct, old Electronically Signed On 08-01-2019 21:42:24 EDT by Janene Hanna
[2019-08-02 04:03] LABS: Basophils # 0.1 K/mcL (0.0-0.2); Basophils % 0.6 %; Eosinophils # 0.7 K/mcL (0.0-0.6); Eosinophils % 7.9 %; Hematocrit 31.7 % (37.5-50.1); Hemoglobin 9.6 g/dL (12.9-16.9); Immature Granulocytes % 0.5 % (0-4); Lymphocytes # 1.5 K/mcL (0.6-4.6); Lymphocytes % 17.8 %; Mean Corpuscular HGB Conc 30.3 g/dL (31.6-35.5); Mean Corpuscular Hemoglobin 24.4 pg (28.0-33.3); Mean Corpuscular Volume 80.5 fL (83.0-100.0); Mean Platelet Volume 9.7 fL (9.4-12.4); Monocytes % 11.6 %; Neutrophils # 5.2 K/mcL (1.6-8.9); Platelet Count 319 K/mcL (140-400); Red Blood Count 3.94 M/mcL (4.19-5.50); Red Cell Distribution Width 15.5 % (11.5-14.5); Segmented Neutrophils % 61.6 %; White Blood Count 8.5 K/mcL (4.3-11.1)
[2019-08-02 04:22] LABS: BUN/Creatinine Ratio 23 (6-26); Blood Urea Nitrogen 28 mg/dL (8-23); Calcium 8.7 mg/dL (8.6-10.3); Carbon Dioxide 36 mEq/L (23-29); Chloride 101 mEq/L (98-107); Glucose 160 mg/dL (70-105); Magnesium 2.2 mg/dL (1.6-2.6); Osmolality,Calculated 305 (280-300); Phosphorous 3.1 mg/dL (2.7-4.5); Sodium 143 mEq/L (136-145); eGFR For African Americans > 60 (> 60); eGFR For Non-African Americans > 60 (> 60)
[2019-08-02] MEDS: Doxycycline 100 MG in 0.9 % Sodium Chloride Mini Bag 100 ML IVPB SCH (05:29)
--- NOTE | 2019-08-02 07:31 | Internal Med Progress Note ---
Hospitalist Progress Note - Encounter Date of Encounter: 08/02/19 Time of Encounter: 08:00 - Subjective Interval History: No acute events overnight. Had bilateral thoracentesis performed - Exam Vitals: Temp Pulse Resp BP Pulse Ox 98 F 60 17 142/56 94 08/02/19 03:49 08/02/19 03:49 08/02/19 03:49 08/02/19 03:49 08/02/19 03:49 Exam: General: Patient is somnolent, arousable, mild distress, on BiPAP Head: Atraumatic, normal inspection, normocephalic. Eye: EOMI, PERRLA, no scleral icterus noted. ENT: Mucous membranes moist. Neck: Normal inspection, Respiratory: Bilateral bibasilar crackles Cardiovascular: Regular rate and regular rhythm, distant heart sounds. GI: Soft, nondistended, normal bowel sounds. Extremities: +3 lateral lower extremity edema up to the knee, right lower extremity larger than the left. Neurological: Alert, oriented 3, no focal deficits. Psychiatric: normal affect, normal mood. Skin: Dry, intact, warm. Normal color. No rashes. - Assessment and Plan (1) Acute respiratory failure with hypoxia Current Visit: Yes Status: Acute Assessment and Plan: ACute hypoxic respiratory failure 2/2 to acute worsening of chronic diastolic CHF and pneumonia. Echo pending to determine EF Continue on Bipap, lasix and antibiotics. s/p bilateral thoracentesis yesterday with significant fluid removal Improved this am. Wean down oxygen as tolerated (2) Congestive heart failure Current Visit: Yes Status: Acute Assessment and Plan: He has had 3 admissions in the past month for heart failure. BNP is elevated for his weight. Has acute worsening of chronic diastolic CHF Continue BID lasix. Strict ins and outs. Echo showed preserved EF with diastolic dysfunction. Received bilateral thoracentesis yesterday (3) DVT (deep venous thrombosis) Current Visit: Yes Status: Acute Assessment and Plan: Continue with Eliquis (4) IDDM (insulin dependent diabetes mellitus) Current Visit: Yes Status: Chronic Assessment and Plan: - On lantus 47 units qhs and lispro 08/16/18. Will start with levemir 30u and MSSI. Accu checks ACHS and ADA diet. (5) A-fib Current Visit: Yes Status: Suspected Assessment and Plan: Continue flecainide and eliquis (6) Pneumonia Current Visit: Yes Status: Acute Assessment and Plan: Continue antibiotics with ceftriaxone and doxycycline Obtain cultures (7) CVA (cerebral vascular accident) Current Visit: Yes Status: Chronic Assessment and Plan: - Continue Aspirin and lipitor. (8) HTN (hypertension) Current Visit: Yes Status: Acute Assessment and Plan: -Continue home medications DVT Prophylaxis: On eliquis - Time Spent with Patient Total time spent is greater than 50% in coordination of care (as documented) at patient's floor/unit and/or counseling patient: Internal Medicine: Result - Labs CBC & Chem 7: 08/02/19 03:44 08/02/19 03:44 Labs: Short CBC 08/02/19 Range/Units 03:44 WBC 8.5 (4.3-11.1) K/mcL Hgb 9.6 L (12.9-16.9) g/dL Hct 31.7 L (37.5-50.1) % Plt Count 319 (140-400) K/mcL Neutrophils # 5.2 (1.6-8.9) K/mcL BMP 08/02/19 03:44 Sodium 143 Potassium 4.0 Chloride 101 Carbon Dioxide 36 H BUN 28 H Creatinine 1.20 Glucose 160 H Calcium 8.7 - ABG Interpretation ABG results: PT/INR, D-dimer PT 17.7 Seconds (9.4-12.1) H 08/01/19 08:17 - Impressions Impressions Chest X-Ray 08/01/19 13:52 IMPRESSION: No pneumothorax following thoracentesis. Small pleural effusions related to CHF remain. D/ / Claudio Khan MD / Claudio Khan MD Interpreting Provider: Claudio Khan MD Thoracentesis 08/01/19 14:57 IMPRESSION: 1. Successful ultrasound guided bilateral thoracentesis. D/ / Ish Prakash MD / Ish Prakash MD Interpreting Provider: Ish Prakash MD Thoracentesis 08/01/19 14:57 IMPRESSION: 1. Successful ultrasound guided bilateral thoracentesis. D/ / Ish Prakash MD / Ish Prakash MD Interpreting Provider: Ish Prakash MD Echocardiogram 08/01/19 16:13 Impressions: LVEF 60-65%. Normal LV chamber size and systolic function. Assymetric septal hypetrophy. No hemodynamically significant LVOT obstruction Moderate left ventricular diastolic dysfunction. Normal right ventricular structure and function. Moderately dilated left atrium. Mildly calcified aortic valve leaflets. Mild aortic stenosis. Peak aortic velocity and mean gradient are 2.44 m/s and 10 mmHg, respectively. Mild tricuspid regurgitation. Unable to estimate RVSP due to incomplete TR jet. Left Ventricular Wall Motion: Rest Echo Findings All wall segments showed normal motion. Findings: Study Quality * Technically adequate exam. ECG Findings * Normal sinus rhythm. Left Ventricle * LVEF 60-65%. * Normal LV chamber size and systolic function. * Assymetric septal hypetrophy. No hemodynamically significant LVOT obstruction * Moderate left ventricular diastolic dysfunction. Right Ventricle * Normal right ventricular structure and function. Left Atrium * Moderately dilated left atrium. Right Atrium * Normal right atrial size. Interatrial Septum * No evidence of PFO by color Doppler. Aortic Valve * * Mildly calcified aortic valve leaflets. Mild aortic stenosis. Peak aortic velocity and mean gradient are 2.44 m/s and 10 mmHg, respectively. * * No aortic regurgitation. * Trileaflet aortic valve. Mitral Valve * Mild mitral annular calcification * No mitral stenosis. * Trace mitral regurgitation. Tricuspid Valve * Mild tricuspid regurgitation. * Unable to estimate RVSP due to incomplete TR jet. * No tricuspid stenosis. Pulmonic Valve * Trace pulmonic regurgitation. Aorta * Normally sized aortic root. Pericardium * The pericardium appears normal. IVC * Normal IVC dimensions and inspiratory collapse. Pulmonary Artery * Normal visualized portions of the main pulmonary artery. Consult Discharge Plan - Plan Referrals: NONE,PCP [Primary Care Provider] - (2) Congestive heart failure Qualifiers: Heart failure type: unspecified Heart failure chronicity: unspecified Qualified Code(s): I50.9 - Heart failure, unspecified (3) DVT (deep venous thrombosis) Qualifiers: DVT location: lower extremity Affected thrombotic vein of extremity: unspecified vein of extremity Chronicity: unspecified Laterality: unspecified laterality Qualified Code(s): I82.409 - Acute embolism and thrombosis of unspecified deep veins of unspecified lower extremity (5) A-fib Qualifiers: Atrial fibrillation type: unspecified Qualified Code(s): I48.91 - Unspecified atrial fibrillation (7) CVA (cerebral vascular accident) Qualifiers: CVA mechanism: unspecified Qualified Code(s): I63.9 - Cerebral infarction, unspecified (8) HTN (hypertension) Qualifiers: Hypertension type: essential hypertension Qualified Code(s): I10 - Essential (primary) hypertension
[2019-08-02] MEDS: Furosemide 40 MG/4 ML VIAL IVP SCH ×2 (08:16→16:39)
[2019-08-02] MEDS: Insulin LISPRO 300 UNITS/3 ML VIAL SQ SCH ×3 (08:17→16:39)
[2019-08-02] MEDS: Aspirin Enteric Coated 81 MG Tablet PO SCH (10:57)
[2019-08-02] MEDS: Loratadine 10 MG TABLET PO SCH (10:57)
[2019-08-02] MEDS: Apixaban 5 MG TABLET PO SCH ×2 (10:57→21:18)
[2019-08-02] MEDS: hydrALAZINE 25 MG TABLET PO SCH ×3 (10:57→21:18)
[2019-08-02] MEDS: Isosorbide MONOnitrate (24 HR) 60 MG TAB.ER.24H PO SCH (10:58)
[2019-08-02] MEDS: Cholecalciferol (D-3) 1,000 UNIT (25MCG) TABLET PO SCH (10:59)
[2019-08-02] MEDS: Gabapentin 300 MG CAPSULE PO SCH ×3 (10:59→21:18)
[2019-08-02] MEDS: cefTRIAXone 1,000 MG in Water for inj. (sterile) 10 ML IVP SCH (10:59)
--- NOTE | 2019-08-02 14:59 | Cardiology Progress Note ---
<Anthony Henning - Last Filed: 08/02/19 14:57> Date of Encounter: 08/02/19 Time of Encounter: 10:00 Assessment and Plan (1) Congestive heart failure Current Visit: Yes Status: Acute Acute on chronic diastolic CHF. TTE:LVEF 60-65%.Normal LV chamber size and systolic function.Assymetric septal hypetrophy. No hemodynamically significant LVOT obstruction. Moderate left ventricular diastolic dysfunction. Normal right ventricular structure and function. Moderately dilated left atrium. Mildly calcified aortic valve leaflets. Mild aortic stenosis. Mild tricuspid regurgitation. Unable to estimate RVSP due to incomplete TR jet. S/p bilateral thoracentesis. Continue IV diuresis for at least 24 hours until euvolemic. Continues to require high amount of oxygen. Rales noted in bases. Strict I&O and daily weights. Net -4570ML. Will need higher dose lasix at discharge. Recommend 40 mg BID orally at discharge. CHF education reviewed. Out-pt f/u scheduled with Dr. Dewey in [place] in one week. Cardiology will sign off. Qualifiers: Heart failure type: unspecified Heart failure chronicity: unspecified Qualified Code(s): I50.9 - Heart failure, unspecified (2) A-fib Current Visit: Yes Status: Suspected Newly diagnosed afib. Currently NSR. On flecainide. Anticoagulated on eliquis. Check EKG. Qualifiers: Atrial fibrillation type: unspecified Qualified Code(s): I48.91 - Unspecified atrial fibrillation Discussion w patient/family: The assessment and plan as outlined above was discussed with the patient and/or family members who expressed understanding and agreement. All questions were answered. Thank you for involving us in the care of your patient. Please call with any questions. Subjective Principal diagnosis: CHF Interval history: Mr. Aldana reports improvement in breathing after thoracentesis. Denies chest pain. Objective Vital Signs, Last 4 Hours Temp Pulse Resp BP Pulse Ox 08/02/19 14:56 98.1 F 59 18 147/64 92 08/02/19 11:37 98.7 F 61 20 146/70 92 08/02/19 11:35 98.7 F 61 18 146/70 92 General: Conversant, No Apparent Distress HEENT: Atraumatic, Normocephaly, Mucus Membranes Moist Neck: No JVD, Normal carotid pulses Cardiac: Reg Rate and Rhythm, Normal S1 and S2, No Murmur, Other Lungs: Other (Respirations slightly labored, rales bilateral bases) Neuro: Alert and responsive, No focal deficits noted Abdomen: Soft, Non-Tender Skin: No rashes noted on visualized skin Musculoskeletal: No Chest Wall Tenderness Extremities: No Clubbing, No Cyanosis, No Edema, Normal Pulses Results 08/02/19 03:44 08/02/19 03:44 Lab Results 08/02/19 08/02/19 03:44 03:44 WBC 8.5 Hgb 9.6 L Hct 31.7 L Plt Count 319 Sodium 143 Potassium 4.0 Chloride 101 Carbon Dioxide 36 H BUN 28 H Creatinine 1.20 Glucose 160 H Calcium 8.7 Magnesium 2.2 - Imaging and Cardiology Echo: report reviewed - EKG Interpretation EKG results cardiology: personally reviewed Consult Discharge Plan - Plan Referrals: NONE,PCP [Primary Care Provider] - Cardiac Rehab - Cardiac Rehab Cardiac Rehab: Phase I consult completed. Patient was educated on why Cardiac Rehabilitation is beneficial to his/her health. Participating in a cardiac rehabilitation can improve the following: strengthen your heart, improve ejection fraction, weight reduction, decrease cholesterol levels, lower blood pressure, lower blood sugar, improve stamina, and enhance self-image. If he/she has any questions, they were instructed to call [facility] at [phone]. < A - Last Filed: 08/02/19 20:58> Date of Encounter: 08/02/19 Assessment and Plan Discussion w patient/family: The assessment and plan as outlined above was discussed with the patient and/or family members who expressed understanding and agreement. All questions were answered. Thank you for involving us in the care of your patient. Please call with any questions. Objective Vital Signs, Last 4 Hours Temp Pulse Resp BP Pulse Ox 08/02/19 18:45 97.6 F 55 16 137/67 94 Results 08/02/19 03:44 08/02/19 03:44 Lab Results 08/02/19 08/02/19 03:44 03:44 WBC 8.5 Hgb 9.6 L Hct 31.7 L Plt Count 319 Sodium 143 Potassium 4.0 Chloride 101 Carbon Dioxide 36 H BUN 28 H Creatinine 1.20 Glucose 160 H Calcium 8.7 Magnesium 2.2 Cardiac Rehab - Cardiac Rehab Cardiac Rehab: Phase I consult completed. Patient was educated on why Cardiac Rehabilitation is beneficial to his/her health. Participating in a cardiac rehabilitation can improve the following: strengthen your heart, improve ejection fraction, weight reduction, decrease cholesterol levels, lower blood pressure, lower blood sugar, improve stamina, and enhance self-image. If he/she has any questions, they were instructed to call [facility] at [phone]. - Attending Attestation I have personally performed a face to face evaluation on this patient. I have reviewed and agree with the documented findings and care plan as documented by the [employer] SUPERVISOR. History and Exam by me shows: Patient with diastolic CHF exacerbation. Continue diuresis. Thanks for the consult, please call with questions. Jakub Gibson MD [facility]
[2019-08-02] MEDS: Doxycycline 100 MG CAPSULE PO SCH (16:39)
[2019-08-02] MEDS: Insulin DETEMIR 100 UNIT/ML X5UNITS SQ SCH (21:18)
[2019-08-03 04:12] LABS: Basophils # 0.1 K/mcL (0.0-0.2); Basophils % 0.6 %; Eosinophils % 10.1 %; Hematocrit 31.6 % (37.5-50.1); Hemoglobin 9.4 g/dL (12.9-16.9); Immature Granulocytes % 0.4 % (0-4); Lymphocytes # 1.6 K/mcL (0.6-4.6); Lymphocytes % 16.3 %; Mean Corpuscular HGB Conc 29.7 g/dL (31.6-35.5); Mean Corpuscular Volume 80.8 fL (83.0-100.0); Monocytes % 10.8 %; Neutrophils # 5.9 K/mcL (1.6-8.9); Platelet Count 305 K/mcL (140-400); Red Blood Count 3.91 M/mcL (4.19-5.50); Red Cell Distribution Width 15.4 % (11.5-14.5); Segmented Neutrophils % 61.8 %; White Blood Count 9.6 K/mcL (4.3-11.1)
[2019-08-03 04:32] LABS: BUN/Creatinine Ratio 20 (6-26); Blood Urea Nitrogen 25 mg/dL (8-23); Calcium 8.6 mg/dL (8.6-10.3); Carbon Dioxide 35 mEq/L (23-29); Chloride 101 mEq/L (98-107); Glucose 169 mg/dL (70-105); Magnesium 2.1 mg/dL (1.6-2.6); Osmolality,Calculated 298 (280-300); Phosphorous 3.2 mg/dL (2.7-4.5); Potassium 3.8 mEq/L (3.5-5.1); Sodium 140 mEq/L (136-145); eGFR For African Americans > 60 (> 60); eGFR For Non-African Americans 57 (> 60)
[2019-08-03] MEDS: Doxycycline 100 MG CAPSULE PO SCH ×2 (05:00→17:56)
--- NOTE | 2019-08-03 07:31 | Internal Med Progress Note ---
Hospitalist Progress Note - Encounter Date of Encounter: 08/03/19 Time of Encounter: 09:00 - Subjective Interval History: No acute events overnight - Exam Vitals: Temp Pulse Resp BP Pulse Ox 98.1 F 66 14 144/72 99 08/03/19 04:21 08/03/19 04:21 08/03/19 04:21 08/02/19 23:49 08/03/19 04:21 Exam: General: Patient is somnolent, arousable, mild distress, on BiPAP Head: Atraumatic, normal inspection, normocephalic. Eye: EOMI, PERRLA, no scleral icterus noted. ENT: Mucous membranes moist. Neck: Normal inspection, Respiratory: Bilateral bibasilar crackles Cardiovascular: Regular rate and regular rhythm, distant heart sounds. GI: Soft, nondistended, normal bowel sounds. Extremities: +3 lateral lower extremity edema up to the knee, right lower extremity larger than the left. Neurological: Alert, oriented 3, no focal deficits. Psychiatric: normal affect, normal mood. Skin: Dry, intact, warm. Normal color. No rashes. - Assessment and Plan (1) Acute respiratory failure with hypoxia Current Visit: Yes Status: Acute Assessment and Plan: ACute hypoxic respiratory failure 2/2 to acute worsening of chronic diastolic CHF and pneumonia. Echo pending to determine EF Continue on Bipap, lasix and antibiotics. s/p bilateral thoracentesis on 08/01 with significant fluid removal Improved this am. Wean down oxygen as tolerated (2) Congestive heart failure Current Visit: Yes Status: Acute Assessment and Plan: He has had 3 admissions in the past month for heart failure. BNP is elevated for his weight. Has acute worsening of chronic diastolic CHF Continue BID lasix. Strict ins and outs. Echo showed preserved EF with diastolic dysfunction. Received bilateral thoracentesis on 08/01 Improving (3) DVT (deep venous thrombosis) Current Visit: Yes Status: Acute Assessment and Plan: Continue with Eliquis (4) IDDM (insulin dependent diabetes mellitus) Current Visit: Yes Status: Chronic Assessment and Plan: - On lantus 47 units qhs and lispro 08/16/18. Will start with levemir 30u and MSSI. Accu checks ACHS and ADA diet. (5) A-fib Current Visit: Yes Status: Suspected Assessment and Plan: Continue flecainide and eliquis (6) Pneumonia Current Visit: Yes Status: Acute Assessment and Plan: Continue antibiotics with ceftriaxone and doxycycline Obtain cultures (7) CVA (cerebral vascular accident) Current Visit: Yes Status: Chronic Assessment and Plan: - Continue Aspirin and lipitor. (8) HTN (hypertension) Current Visit: Yes Status: Acute Assessment and Plan: -Continue home medications DVT Prophylaxis: On eliquis - Time Spent with Patient Total time spent is greater than 50% in coordination of care (as documented) at patient's floor/unit and/or counseling patient: Internal Medicine: Result - Labs CBC & Chem 7: 08/03/19 03:21 08/03/19 03:21 Labs: Short CBC 08/03/19 Range/Units 03:21 WBC 9.6 (4.3-11.1) K/mcL Hgb 9.4 L (12.9-16.9) g/dL Hct 31.6 L (37.5-50.1) % Plt Count 305 (140-400) K/mcL Neutrophils # 5.9 (1.6-8.9) K/mcL BMP 08/03/19 03:21 Sodium 140 Potassium 3.8 Chloride 101 Carbon Dioxide 35 H BUN 25 H Creatinine 1.26 Glucose 169 H Calcium 8.6 - ABG Interpretation ABG results: PT/INR, D-dimer PT 17.7 Seconds (9.4-12.1) H 08/01/19 08:17 Consult Discharge Plan - Plan Referrals: NONE,PCP [Primary Care Provider] - (2) Congestive heart failure Qualifiers: Heart failure type: unspecified Heart failure chronicity: unspecified Qualified Code(s): I50.9 - Heart failure, unspecified (3) DVT (deep venous thrombosis) Qualifiers: DVT location: lower extremity Affected thrombotic vein of extremity: unspecified vein of extremity Chronicity: unspecified Laterality: unspecified laterality Qualified Code(s): I82.409 - Acute embolism and thrombosis of u nspecified deep veins of unspecified lower extremity (5) A-fib Qualifiers: Atrial fibrillation type: unspecified Qualified Code(s): I48.91 - Unspecified atrial fibrillation (7) CVA (cerebral vascular accident) Qualifiers: CVA mechanism: unspecified Qualified Code(s): I63.9 - Cerebral infarction, unspecified (8) HTN (hypertension) Qualifiers: Hypertension type: essential hypertension Qualified Code(s): I10 - Essential (primary) hypertension
[2019-08-03] MEDS: Insulin LISPRO 300 UNITS/3 ML VIAL SQ SCH ×3 (07:37→15:59)
[2019-08-03] MEDS: Gabapentin 300 MG CAPSULE PO SCH ×3 (07:42→20:13)
[2019-08-03] MEDS: Cholecalciferol (D-3) 1,000 UNIT (25MCG) TABLET PO SCH (07:42)
[2019-08-03] MEDS: Isosorbide MONOnitrate (24 HR) 60 MG TAB.ER.24H PO SCH (07:42)
[2019-08-03] MEDS: hydrALAZINE 25 MG TABLET PO SCH ×3 (07:42→20:13)
[2019-08-03] MEDS: Loratadine 10 MG TABLET PO SCH (07:42)
[2019-08-03] MEDS: Apixaban 5 MG TABLET PO SCH ×2 (07:43→20:13)
[2019-08-03] MEDS: cefTRIAXone 1,000 MG in Water for inj. (sterile) 10 ML IVP SCH (07:43)
[2019-08-03] MEDS: Furosemide 40 MG/4 ML VIAL IVP SCH ×2 (07:43→17:56)
[2019-08-03] MEDS: Aspirin Enteric Coated 81 MG Tablet PO SCH (07:43)
[2019-08-03] MEDS: Insulin DETEMIR 100 UNIT/ML X5UNITS SQ SCH (20:13)
[2019-08-04] MEDS: Doxycycline 100 MG CAPSULE PO SCH (05:23)
[2019-08-04 07:04] LABS: Basophils # 0.1 K/mcL (0.0-0.2); Basophils % 0.6 %; Eosinophils # 1.2 K/mcL (0.0-0.6); Eosinophils % 12.6 %; Hematocrit 31.7 % (37.5-50.1); Hemoglobin 9.6 g/dL (12.9-16.9); Immature Granulocytes % 0.4 % (0-4); Lymphocytes # 1.5 K/mcL (0.6-4.6); Lymphocytes % 14.9 %; Mean Corpuscular HGB Conc 30.3 g/dL (31.6-35.5); Mean Corpuscular Hemoglobin 24.2 pg (28.0-33.3); Mean Corpuscular Volume 79.8 fL (83.0-100.0); Monocytes % 10.6 %; Neutrophils # 5.9 K/mcL (1.6-8.9); Platelet Count 284 K/mcL (140-400); Red Blood Count 3.97 M/mcL (4.19-5.50); Red Cell Distribution Width 15.2 % (11.5-14.5); Segmented Neutrophils % 60.9 %; White Blood Count 9.7 K/mcL (4.3-11.1)
[2019-08-04 07:19] LABS: BUN/Creatinine Ratio 19 (6-26); Blood Urea Nitrogen 22 mg/dL (8-23); Calcium 8.8 mg/dL (8.6-10.3); Carbon Dioxide 34 mEq/L (23-29); Chloride 100 mEq/L (98-107); Glucose 180 mg/dL (70-105); Osmolality,Calculated 294 (280-300); Phosphorous 2.9 mg/dL (2.7-4.5); Potassium 3.9 mEq/L (3.5-5.1); Sodium 138 mEq/L (136-145); eGFR For African Americans > 60 (> 60); eGFR For Non-African Americans > 60 (> 60)
[2019-08-04 07:58] VITALS: BP 159/66
[2019-08-04] MEDS: Loratadine 10 MG TABLET PO SCH (08:06)
[2019-08-04] MEDS: Aspirin Enteric Coated 81 MG Tablet PO SCH (08:06)
[2019-08-04] MEDS: Insulin LISPRO 300 UNITS/3 ML VIAL SQ SCH ×2 (08:06→13:52)
[2019-08-04] MEDS: Cholecalciferol (D-3) 1,000 UNIT (25MCG) TABLET PO SCH (08:06)
[2019-08-04] MEDS: hydrALAZINE 25 MG TABLET PO SCH (08:06)
[2019-08-04] MEDS: Isosorbide MONOnitrate (24 HR) 60 MG TAB.ER.24H PO SCH (08:06)
[2019-08-04] MEDS: Apixaban 5 MG TABLET PO SCH (08:07)
[2019-08-04] MEDS: Gabapentin 300 MG CAPSULE PO SCH (08:07)
[2019-08-04] MEDS: Furosemide 40 MG/4 ML VIAL IVP SCH (08:07)
[2019-08-04] MEDS: cefTRIAXone 1,000 MG in Water for inj. (sterile) 10 ML IVP SCH (08:07)
--- NOTE | 2019-08-04 08:53 | Discharge Summary ---
Orders not resulted at time of discharge: Pending orders 08/01/19 08:17 Culture,Blood [BC] Routine Date of Encounter: 08/04/19 Time of Encounter: 08:00 - Discharge Diagnosis (1) Acute respiratory failure with hypoxia Priority: Primary Status: Acute Assessment and Plan: 69 year old male with history of CVA status post right-sided weakness, DVT, left carotid artery endarterectomy, recurrent heart failure, insulin-dependent diabetes mellitus, ??? A. dale (on flecainide) was sent from [place] emergency Department due to dyspnea and decompensated heart failure. Patient was sleepy on BiPAP during my encounter and most of the history was taken from his brother. Patient had 3 hospitalization in the last month for acute decompensated heart failure and he also follows with outpatient payroll clerk. As per the brother, patient is on Lasix 20 mg twice a day and he does not skip any doses. He was assessed with acute hypoxic respiratory failure 2/2 to acute worsening of chronic diastolic CHF and pneumonia. Echo showed diastolic dysfucntion. He improved on Bipap, lasix and antibiotics. He underwent bilateral thoracentesis on 08/01 with significant fluid removal on both sides. He was initially r equiring 10L of oxygen but was succesfully weaned down to 3L O2. His baseline oxygen levels are 4L at home. He was discharged home in a stable condition. His dose of lasix has been increased and he is to complete a course of doxycycline. 35 minutes was spent discharging this patient (2) Congestive heart failure Priority: Primary Status: Acute Assessment and Plan: He has had 3 admissions in the past month for heart failure. BNP is elevated for his weight. Has acute worsening of chronic diastolic CHF Continue BID lasix. Strict ins and outs. Echo showed preserved EF with diastolic dysfunction. Received bilateral thoracentesis on 08/01 Improving Qualifiers: Heart failure type: unspecified Heart failure chronicity: unspecified Qualified Code(s): I50.9 - Heart failure, unspecified (3) DVT (deep venous thrombosis) Priority: Primary Status: Acute Qualifiers: DVT location: lower extremity Affected thrombotic vein of extremity: unspecified vein of extremity Chronicity: unspecified Laterality: unspecified laterality Qualified Code(s): I82.409 - Acute embolism and thrombosis of unspecified deep veins of unspecified lower extremity (4) IDDM (insulin dependent diabetes mellitus) Priority: Primary Status: Chronic (5) A-fib Priority: Primary Status: Suspected Qualifiers: Atrial fibrillation type: unspecified Qualified Code(s): I48.91 - Unspecified atrial fibrillation (6) Pneumonia Priority: Primary Status: Acute Qualifiers: Qualified Code(s): J18.9 - Pneumonia, unspecified organism (7) CVA (cerebral vascular accident) Priority: Primary Status: Chronic Qualifiers: CVA mechanism: unspecified Qualified Code(s): I63.9 - Cerebral infarction, unspecified (8) HTN (hypertension) Priority: Primary Status: Acute Qualifiers: Hypertension type: essential hypertension Qualified Code(s): I10 - Essential (primary) hypertension Hospital course: Mr. Aldana is a 69 year old male - Time Spent with Patient Total time spent providing and/or coordinating discharge services: - Discharge Medications Prescriptions: New Doxycycline 100 mg PO Q12HR #10 capsule Continued Spironolactone 25 mg PO DAILY Isosorbide MONOnitrate (24 HR) [Imdur] 60 mg PO DAILY Carvedilol [Coreg] 25 mg PO BID Flecainide 100 mg PO Q12HR Apixaban [Eliquis] 5 mg PO BID Aspirin [Lo-Dose Aspirin EC] 81 mg PO DAILY Atorvastatin Calcium [Lipitor] 80 mg PO DAILY Cholecalciferol (D-3) [Vitamin D] 2,000 unit PO DAILY Gabapentin [Neurontin] 300 mg PO TID Hydralazine HCl 100 mg PO TID Loratadine [Claritin] 10 mg PO DAILY Losartan Potassium [Cozaar] 100 mg PO DAILY Pantoprazole Sodium [Protonix] 40 mg PO DAILY Ranitidine HCl [Heartburn Relief] 150 mg PO DAILY Sertraline [Zoloft] 25 mg PO DAILY Tamsulosin HCl [Flomax] 0.4 mg PO DAILY Insulin ASPART [Novolog Flexpen] 10 unit SQ 0700,1200 Insulin ASPART [Novolog Flexpen] 18 unit SQ 1700 Insulin Glargine,Hum.rec.anlog [Lantus Solostar] 47 unit SQ HS Changed Furosemide [Lasix] 40 mg PO BID 30 Days #60 tab Discontinued Amlodipine Besylate 10 mg PO DAILY Home Medications: Apixaban [Eliquis] 5 mg PO BID 07/31/19 [History] Aspirin [Lo-Dose Aspirin EC] 81 mg PO DAILY 07/31/19 [History] Atorvastatin Calcium [Lipitor] 80 mg PO DAILY 07/31/19 [History] Carvedilol [Coreg] 25 mg PO BID 07/31/19 [History] Cholecalciferol (D-3) [Vitamin D] 2,000 unit PO DAILY 07/31/19 [History] Flecainide 100 mg PO Q12HR 07/31/19 [History] Gabapentin [Neurontin] 300 mg PO TID 07/31/19 [History] Hydralazine HCl 100 mg PO TID 07/31/19 [History] Insulin ASPART [Novolog Flexpen] 10 unit SQ 0700,1200 07/31/19 [History] Insulin ASPART [Novolog Flexpen] 18 unit SQ 1700 07/31/19 [History] Insulin Glargine,Hum.rec.anlog [Lantus Solostar] 47 unit SQ HS 07/31/19 [History] Isosorbide MONOnitrate (24 HR) [Imdur] 60 mg PO DAILY 07/31/19 [History] Loratadine [Claritin] 10 mg PO DAILY 07/31/19 [History] Losartan Potassium [Cozaar] 100 mg PO DAILY 07/31/19 [History] Pantoprazole Sodium [Protonix] 40 mg PO DAILY 07/31/19 [History] Ranitidine HCl [Heartburn Relief] 150 mg PO DAILY 07/31/19 [History] Sertraline [Zoloft] 25 mg PO DAILY 07/31/19 [History] Spironolactone 25 mg PO DAILY 07/31/19 [History] Tamsulosin HCl [Flomax] 0.4 mg PO DAILY 07/31/19 [History] Doxycycline 100 mg PO Q12HR #10 capsule 08/04/19 [Rx] Furosemide [Lasix] 40 mg PO BID 30 Days #60 tab 08/04/19 [Rx] Allergies/Adverse Reactions: Allergy/AdvReac Type Severity Reaction Status Date / Time No Known Allergies Allergy Verified 07/31/19 14:20 Date of admission: 08/01/19 14:48 Primary care physician: PCP NONE Consults: 07/31/19 17:16 Consult to Cardiology [CONS] Routine Comment: Consulting Provider: Cardiology Chelsey Reason for Consult: Recurrent heart failure. Call Completed: No 07/31/19 19:17 Consult to Logistic Specialist [CONS] Routine Reason for SW Consult: pt wants to appoint girlfriend MPOA - Constitutional Vitals: Temp Pulse Resp BP Pulse Ox 98.2 F 64 16 159/66 94 08/04/19 07:57 08/04/19 07:57 08/04/19 07:57 08/04/19 07:57 08/04/19 07:57 Exam: General: Patient is somnolent, arousable, mild distress, on BiPAP Head: Atraumatic, normal inspection, normocephalic. Eye: EOMI, PERRLA, no scleral icterus noted. ENT: Mucous membranes moist. Neck: Normal inspection, Respiratory: Bilateral bibasilar crackles Cardiovascular: Regular rate and regular rhythm, distant heart sounds. GI: Soft, nondistended, normal bowel sounds. Extremities: +3 lateral lower extremity edema up to the knee, right lower extremity larger than the left. Neurological: Alert, oriented 3, no focal deficits. Psychiatric: normal affect, normal mood. Skin: Dry, intact, warm. Normal color. No rashes. - Patient Status Disposition: Home Health Service Condition: Good - Discharge Instructions Follow Up With: NONE,PCP [Primary Care Provider] -
--- NOTE | 2019-08-04 09:09 | Physician Discharge Referral ---
Home Health/Hosp Referral Info Transfer to: Home Health - Diagnosis (1) Acute respiratory failure with hypoxia Priority: Primary Status: Acute (2) Congestive heart failure Priority: Primary Status: Acute (3) DVT (deep venous thrombosis) Priority: Primary Status: Acute (4) IDDM (insulin dependent diabetes mellitus) Priority: Primary Status: Chronic (5) A-fib Priority: Primary Status: Suspected (6) Pneumonia Priority: Primary Status: Acute (7) CVA (cerebral vascular accident) Priority: Primary Status: Chronic (8) HTN (hypertension) Priority: Primary Status: Acute - Respiratory Orders Smoking Cessation: Smoking cessation has been advised. For more information, call the [place] Tobacco Quit Line at 2-624-NABN-NOW. - Diet/Nutrition Diet/Nutrition Orders: Cardiac - Services Needed Following services are medically necessary services: Nursing, Home Health Aide, Physical Therapy - Transfer Medications Prescriptions: Doxycycline 100 mg PO Q12HR #10 capsule Prescription Printed Furosemide [Lasix] 40 mg PO BID 30 Days #60 tab Prescription Printed Home Medications: Apixaban [Eliquis] 5 mg PO BID 07/31/19 [History] Aspirin [Lo-Dose Aspirin EC] 81 mg PO DAILY 07/31/19 [History] Atorvastatin Calcium [Lipitor] 80 mg PO DAILY 07/31/19 [History] Carvedilol [Coreg] 25 mg PO BID 07/31/19 [History] Cholecalciferol (D-3) [Vitamin D] 2,000 unit PO DAILY 07/31/19 [History] Flecainide 100 mg PO Q12HR 07/31/19 [History] Gabapentin [Neurontin] 300 mg PO TID 07/31/19 [History] Hydralazine HCl 100 mg PO TID 07/31/19 [History] Insulin ASPART [Novolog Flexpen] 10 unit SQ 0700,1200 07/31/19 [History] Insulin ASPART [Novolog Flexpen] 18 unit SQ 1700 07/31/19 [History] Insulin Glargine,Hum.rec.anlog [Lantus Solostar] 47 unit SQ HS 07/31/19 [History] Isosorbide MONOnitrate (24 HR) [Imdur] 60 mg PO DAILY 07/31/19 [History] Loratadine [Claritin] 10 mg PO DAILY 07/31/19 [History] Losartan Potassium [Cozaar] 100 mg PO DAILY 07/31/19 [History] Pantoprazole Sodium [Protonix] 40 mg PO DAILY 07/31/19 [History] Ranitidine HCl [Heartburn Relief] 150 mg PO DAILY 07/31/19 [History] Sertraline [Zoloft] 25 mg PO DAILY 07/31/19 [History] Spironolactone 25 mg PO DAILY 07/31/19 [History] Tamsulosin HCl [Flomax] 0.4 mg PO DAILY 07/31/19 [History] Doxycycline 100 mg PO Q12HR #10 capsule 08/04/19 [Rx] Furosemide [Lasix] 40 mg PO BID 30 Days #60 tab 08/04/19 [Rx] Allergies/Adverse Reactions: Allergy/AdvReac Type Severity Reaction Status Date / Time No Known Allergies Allergy Verified 07/31/19 14:20 Certification: Further, I certify that my clinical findings support that this patient is homebound (i.e. absences from home require considerable and taxing effort and are for medical reasons or episcopal services or infrequently or short duration when for other reasons) because: Homebound Reason: Patient requires assistance of a person or device to safely leave home Attestation: My signature below is to certify that this patient is under my care and that I, or nurse practitioner, or a physician's laundry assistant working with me, has a [id number] encounter with this patient.
[2019-08-04] MEDS ORDERED: FLU Vac QV 19-20 (6Month+)/PF 0.5 ML SYRINGE IM ONE (12:01)
== END 2019-08-04 14:22 | disposition home health service (06) | DRG 291 ==
LOC: SUATTDRO → EMEROOARM 14:04 → 2ANU 14:04
PROVIDERS: ADMIT Internal Medicine; ATTEND Internal Medicine